=== PATIENT | female | born 1965 | race Caucasian/White ===

== ENCOUNTER 2021-04-29 11:42 | Emergency (ER) | payer OTHER ==
[~2021-04-29] VITALS: Ht 160 cm; Wt 60.8 kg
[~2021-04-29 11:42] MED LIST: SYNTHROID88 MCG PO
[2021-04-29] MEDS ORDERED: PEPCID AC20 MG PO (11:52)
[2021-04-29] MEDS ORDERED: ULTRAM50 MG PO (15:56)
== END 2021-04-29 16:03 | disposition home or self-care (01) ==
LOC: ER 11:42
DX: K57.90 Diverticulosis of intestine, part unspecified, without perforation or abscess without bleeding (principal); R10.32 Left lower quadrant pain; N20.0 Calculus of kidney

== ENCOUNTER 2022-02-03 06:18 | Day surgery (SDC) | payer OTHER ==
[~2022-02-03 06:18] MED LIST changes: +PEPCID AC20 MG PO; +ULTRAM50 MG PO
[2022-02-03] MEDS ORDERED: PERCOCET 5-3251 EACH PO (12:22)
[2022-02-03] MEDS ORDERED: DUI500 PO (12:22)
[2022-02-03] MEDS ORDERED: ELIQUIS2.5 MG PO (12:22)
== END 2022-02-03 16:45 | disposition home or self-care (01) ==
LOC: CIR.AMB 06:18
PROVIDERS: ATTEND Orthopaedic Surgery
DX: S82.842A Displaced bimalleolar fracture of left lower leg, initial encounter for closed fracture (principal); Z91.013 Allergy to seafood; J45.909 Unspecified asthma, uncomplicated; Z87.891 Personal history of nicotine dependence; E03.9 Hypothyroidism, unspecified; G43.909 Migraine, unspecified, not intractable, without status migrainosus; K21.9 Gastro-esophageal reflux disease without esophagitis

== ENCOUNTER 2023-11-30 12:28 | Emergency (ER) | payer OTHER ==
[~2023-11-30] VITALS: Ht 162.6 cm; Wt 59.0 kg
[~2023-11-30 12:28] MED LIST changes: +DUI500 PO; +ELIQUIS2.5 MG PO; +PERCOCET 5-3251 EACH PO
[2023-11-30] MEDS ORDERED: PROTONIX40 M1 PO (13:02)
[2023-11-30] MEDS ORDERED: PEPCID AC20 MG PO (13:03)
[2023-11-30 15:43] LABS: HEMATOCRIT 38.9 % (36.0-45.00); HEMOGLOBIN 13.2 g/dL (12.0-15.00); MEAN CELL VOLUME 98.3 fL (80.00-100.00); MEAN CORPUSCULAR HEMOGLOBIN 33.3 pg (27.00-32.0); MEAN CORPUSCULAR HGB CONC 33.9 g/dl (32.0-36.0); PLATELET COUNT 230 K/uL (150-450); RED BLOOD COUNT 3.95 M/uL (4.00-6.00); RED CELL DISTRIBUTION WIDTH 13.5 % (11.5-14.5)
[2023-11-30 16:04] LABS: CREATININE SERUM 0.86 mg/dL (0.55-1.02); GFR 67.77; POTASSIUM 3.78 mEq/L (3.5-5.1)
[2023-11-30 18:11] LABS: ABG PO2 101.3 mmHg (80-100); ABG pCO2 34.6 mmHg (35-45)
[2023-11-30 18:12] LABS: BASE EXCESS -0.5 mmol/l; Tco2 24.1 mmol/l; allen test SATISFACTORY; o2 21 %; puncture site RADIAL LEFT
== END 2023-11-30 21:36 | disposition home or self-care (01) ==
LOC: ER 12:28
PROVIDERS: General Practice
DX: J45.901 Unspecified asthma with (acute) exacerbation (principal); R05.8 Other specified cough; Z88.6 Allergy status to analgesic agent; Z91.013 Allergy to seafood; Z20.822 Contact with and (suspected) exposure to COVID-19